=== PATIENT | female | born 1975 | race Caucasian/White ===

== ENCOUNTER 2016-08-17 22:41 | Emergency (ER) | payer OTHER ==
[~2016-08-17] VITALS: Ht 175.3 cm; Wt 83.9 kg
[~2016-08-17 22:41] MED LIST: FIBE1CHW PO; TRAM-10 PO
[2016-08-17 22:45] VITALS: TEMP 36.7; Ht 175.3 cm; Wt 83.9 kg
--- NOTE | 2016-08-17 22:57 | DIAGNOSTIC IMAGING REPORT ---
HEAD CT NONCONTRAST CT DOSE: 773.57 mGy.cm HISTORY: Mental status change severe LICONA TECHNIQUE: Multiaxial CT images of the head were performed without the use of intravenous contrast. Comparison: None. Findings: The paranasal sinuses and mastoid air cells are clear. The calvarium and skull base are intact. The ventricles and sulci are within normal limits. There is no mass, hematoma, midline shift, or acute infarct. Impression: No acute intracranial abnormality. Electronically signed by: Jose Juan Cheng M.D. 08/17/2016 10:56 PM Dictated Date/Time: 08/17/2016 10:55 PM
[2016-08-17] MEDS ORDERED: SUMATRIPTAN SUCCINATE 6 MG/0.5 ML VIAL SQ STA (23:09)
[2016-08-17] MEDS ORDERED: SUMA25TA12 PO ×2 (23:50→23:52)
[2016-08-17] MEDS ORDERED: SUMA50TA15 PO (23:54)
--- NOTE | 2016-08-17 23:59 | EMERGENCY ROOM VISIT NOTE ---
History First contact with patient: 22:43 Chief Complaint: HEADACHE Stated Complaint: MIGRAINE, NAUSEA, VOMITING History of Present Illness The patient is a 41 year old female who presents to the Emergency Room with complaints of sudden onset of headache today 1 hour just prior to arrival. Patient has a history of migraines and symptoms are somewhat worse. This is not her worst headache of her life but is quite severe for her. She is out of her Imitrex. Patient with some nausea, vomiting and photophobia. Patient denies numbness, tingling, weakness, dysarthria, fevers, cold symptoms, neck stiffness, loss of conscious, chest pain, dyspnea, abdominal pain or any other medical complaints. Normal imaging in the past of CT and MRI of the brain. She has a neurologist but cannot recall her name. Patient arrived via EMS and was given Zofran. Review of Systems See HPI for pertinent positives & negatives. A total of 10 systems reviewed and were otherwise negative. Past Medical/Surgical History Medical Problems: (1) Bilateral tubal ligation (2) section (3) Hernia, inguinal, unilateral Social History Smoking Status: Current Every Day Smoker Drug Use: none Marital Status: single Housing Status: lives with family Occupation Status: unemployed Current/Historical Medications Scheduled Sumatriptan Succinate (Imitrex), 1 TAB PO UD Allergies Coded Allergies: Penicillins (Verified Allergy, Mild, RASH TO AMOXICILLIN PER DR. CORREA, 08/17/16) Physical Exam Vital Signs Date Time Temp Pulse Resp B/P (MAP) Pulse Ox O2 Delivery O2 Flow Rate FiO2 08/17/16 22:45 36.7 90 22 116/76 100 Room Air Physical Exam VITALS: Vitals are noted on the nurse's note and reviewed by myself. Vital signs stable. GENERAL: Pleasant female who appears in pain, in no acute distress, nondiaphoretic, well-developed well-nourished. SKIN: The skin was without rashes, erythema, edema, or bruising. There is no tenting of the skin. Capillary reflex less than 2 seconds. HEAD: Normocephalic atraumatic. EARS: External auditory canals clear, tympanic membranes pearly greenberg without erythema or effusion bilaterally. EYES: Pupils equal round and reactive to light and accommodation. Conjunctivae without injection, sclerae without icterus. Extraocular movements intact. NOSE: Patent, turbinates without inflammation or discharge. No sinus tenderness. MOUTH: Mucous membranes moist. Pharynx without erythema or exudate. Uvula midline. Airway patent. Tongue does not deviate. NECK: Supple without nuchal rigidity. No lymphadenopathy. No thyromegaly. Cervical spine is nontender. No JVD. No meningeal signs HEART: Regular rate and rhythm without murmurs gallops or rubs. LUNGS: Clear to auscultation bilaterally without wheezes, rales or rhonchi. No dullness to percussion. No retractions or accessory muscle use. ABDOMEN: Positive bowel sounds x 4. Normal tympanic percussion. Soft, nontender, without masses or organomegaly. Damon sign negative. No guarding or rebound tenderness. MUSCULOSKELETAL: No muscle atrophy, erythema, or edema noted. NEURO: Patient was alert and oriented to person place and time. Normal sensation to light and sharp touch. No focal neurological deficits. Cranial nerves II-12 grossly intact. No prior drift. Cerebellar exam intact. Medical Decision & Procedures Medications Administered Medications (Trade) Dose Ordered Sig/Waqas Route Start Time Stop Time Status Last Admin Dose Admin Sumatriptan Succinate (Imitrex Sq Inj) 6 mg NOW STAT SQ 08/17/16 23:09 08/17/16 23:11 DC 08/17/16 23:27 6 MG ED Course Prior records/ancillary studies reviewed. Additional history obtained from family. Triage Nursing notes reviewed. The patient's history was concerning for headache. Differential diagnosis: Etiologies such as migraine headache, meningitis, sinusitis, CO exposure, ICH, SAH, infection, tumor, headache, sinus thrombosis, arterial dissection, as well as others were entertained. Physical examination findings: As above. Non-focal. ER treatment provided: Imitrex On reassessment the patient felt better. Diagnostics interpreted by me: Negative head CT per radiology This appears to be consistent with Migraine. Patient was neurovascularly and neurologically intact. She was well-appearing. No signs of meningitis. She had an unremarkable workup as above. She is advised follow-up with her neurologist in a few days or here in the ER sooner for severe headache, weakness , numbness, worsening signs or symptoms or as needed. By the evaluation outlined above emergent etiologies such as meningitis, sinusitis, CO exposure, ICH, SAH, infection, temporal arteritis, tumor, sinus thrombosis, arterial dissection, as well as others were deemed relatively unlikely. The pt informed about the findings as listed above. All questions were answered and pleased with the treatment. Return instructions were outlined and the patient was discharged in stable condition. Outpatient prescription management: imitrex Referral: The patient was referred back to their primary care physician/Neurology for follow-up in 2 to 3 days for a recheck of the current condition. case reviewed with my Attending. Medical Decision As above I attest that I have personally reviewed the patient's medications. Impression Primary Impression: Migraine Departure Information Prescriptions Sumatriptan Succinate (IMITREX) 50 Mg Tab 1 TAB PO UD, #20 TAB 1 Refill Prov: Michelle Esposito .PRIYA 08/17/16 Referrals Glen Oconnor M.D. (PCP) Patient Instructions My [facility] Problem Qualifiers Primary Impression: Migraine Migraine type: without aura Status migrainosus presence: without status migrainosus Intractability: not intractable Qualified Codes: G43.009 - Migraine without aura, not intractable, without status migrainosus
[2016-08-18 00:03] VITALS: BP 110/72; PULSE 82; O2SAT 98
== END 2016-08-18 00:04 | disposition home or self-care (01) ==
LOC: EDBD 22:41 → C.EDB 22:43
DX: G43.009 Migraine without aura, not intractable, without status migrainosus (principal); F17.200 Nicotine dependence, unspecified, uncomplicated

== ENCOUNTER 2021-10-16 22:47 | Inpatient (IN) ==
[2021-10-16] MEDS ORDERED: TRANEXAMIC ACID / 0.7% NACL 1,000 MG/100 ML BAG IV STA (22:57)
--- NOTE | 2021-10-16 23:18 | Emergency Department Note ---
History of Present Illness General Chief complaint: Wound Time Seen by Provider: 10/16/21 22:50 History of Present Illness Maximum Pain Intensity: [age]-year-old female presents emergency department via EMS with a bleeding fungating breast cancer mass of the left breast. Patient reportedly has a history of breast cancer and brain cancer reportedly was just recently at [facility]. She was to follow-up with a local breast surgeon. She called EMS this evening as the left breast area started to bleed without any trauma. Patient denies being on any blood thinners. EMS states that they noticed bruising at the area of the mass and bulky dressed and wrapped the patient's chest wall. There are no other complaints from the patient at this time Home Medications Medication Instructions Recorded Confirmed Type acetaminophen 500 mg tablet 1,000 mg PO Q6H PRN Pain 10/17/21 10/17/21 History (Tylenol Extra Strength) famotidine 20 mg tablet 20 mg PO BID PRN Acid Reflux 10/17/21 10/17/21 History levetiracetam 1,000 mg tablet 1,000 mg PO BID 10/17/21 10/17/21 History Allergies Allergy/AdvReac Type Severity Reaction Status Date / Time Penicillins Allergy Mild RASH TO Verified 10/17/21 01:[address] CORREA Past Med/Surg History Medical History Breast cancer Surgical History History of bilateral tubal ligation (09/29/12) Previous section (09/29/12) Social History Smoking Status: Former smoker Tobacco Type: Cigarettes Preferred Language: Yi Feels Safe at Home: Yes Immunizations: Medical history is brain cancer, breast cancer Review of Systems A total of 10 systems reviewed and were otherwise negative Constitutional: no fever Respiratory: no cough Cardiovascular: no chest pain Gastrointestinal: no abdominal pain Integumentary: + lesions, + bleeding lesions, + breast pain, + breast skin changes and + breast swelling Physical Exam Vital Signs Vital Signs - 24 hr 10/16/21 23:00 10/16/21 23:50 10/16/21 23:30 Temperature 36.9 C Temperature Source Oral Pulse Rate 97 H 93 H Pulse Rate from SpO2 Sensor 93 H Pulse Rhythm Regular Pulse Strength Normal Respiratory Rate 20 19 Respiratory Effort / Characteristics Non-Labored Spontaneous Respiratory Depth Normal Respiratory Pattern Regular Blood Pressure 124/78 118/81 Blood Pressure Mean 93 93 Blood Pressure Position Lying Pulse Oximetry 98 100 99 Oxygen Delivery Method Room Air Room Air Sepsis Recent Fever Within 48 Hours No Sepsis New/Unexplained Change in Mental Status No Sepsis Action Taken by Nursing No Action Required 10/17/21 00:00 10/17/21 00:30 Temperature Temperature Source Pulse Rate 93 H 80 Pulse Rate from SpO2 Sensor Pulse Rhythm Pulse Strength Respiratory Rate 18 21 Respiratory Effort / Characteristics Respiratory Depth Respiratory Pattern Blood Pressure 129/84 109/77 Blood Pressure Mean 99 87 Blood Pressure Position Pulse Oximetry 97 96 Oxygen Delivery Method Sepsis Recent Fever Within 48 Hours Sepsis New/Unexplained Change in Mental Status Sepsis Action Taken by Nursing VITAL SIGNS - Vital signs and nursing notes were reviewed. GENERAL - in no acute distress. Communicates well with provider and answers questions appropriately. SKIN - Without rashes. HEAD - NC/AT. EYES - PERRL with EOMI bilaterally. Sclera anicteric. Palpebral conjunctiva pink and moist with no injection noted. EARS - No deformities of external structures noted on gross examination bilaterally. NOSE - Midline and without cyanosis. No epistaxis or purulent drainage noted. Septum midline without deviation or septal hematoma noted. MOUTH/OROPHARYNX - Without perioral cyanosis. NECK - Neck with FROM. Supple to palpation. LUNGS - Chest wall symmetric without accessory muscle use, intercostals retractions, or central cyanosis. Normal vesicular breath sounds CTA B/L. No wheezes, rales, or rhonchi appreciated. CARDIAC - RRR with S1/S2. No murmur, rubs, or gallops appreciated. Chest: There is a large fungating violaceous left breast mass that has raw oozing bleeding tissue present ABDOMEN - Abdominal contour soft without pulsations or visible masses. BS normoactive all four quadrants. No tenderness, palpable masses, hepatosplenomegaly, or ascites noted. EXTREMITIES - No clubbing or peripheral cyanosis. No pretibial edema present. . +5/5 strength noted in UE/LE bilaterally. NEUROLOGIC - Cranial nerves II through XII grossly intact. PSYCH - A&Ox3 and cooperates fully with examiner. Pt is very pleasant and inte racts well with examiner. Course Reevaluation(s) Reevaluation #1: Patient was given IV TXA, patient had a bulky dressing placed and bandage to the left breast. Patient was started on empiric IV antibiotics. The case was discussed with the surgical team, the case was discussed with [facility] for admission at 1:04 AM Time: 01:04 Administered Medications Tranexamic Acid (Tranexamic Acid / 0.7% Nacl) 1,000 mg in 100 mls @ 600 mls/hr IV NOW STA Stop: 10/16/21 23:06 Last Infusion: 10/16/21 23:54 Dose: 0 mls/hr Documented By: Admin: 10/16/21 23:28 Dose: 600 mls/hr Documented By: HARSHA Meropenem 500 mg/ Syringe 10 mls @ 2 mls/min IV NOW STA; Protocol Stop: 10/17/21 01:24 Last Admin: 10/17/21 01:38 Dose: 2 mls/min Documented By: HARSHA Medical Decision Making Medical Records Attestation: I reviewed the patient's medical records. Home Medications Current Medication List: was personally reviewed by me Laboratory Data Attestation: I reviewed the patient's lab results. Result diagrams: 10/16/21 23:30 10/16/21 23:30 Lab Results 10/16/21 10/16/21 10/16/21 Range/Units 23:30 23:30 23:30 WBC 26.32 H (4.8-10.8) K/ul RBC 2.67 L (3.93-5.22) M/uL Hgb 8.6 L (12.0-16.0) g/dl Hct 27.7 L (34.1-44.9) % MCV 103.7 H (80.0-100.0) fL MCH 32.2 (25.0-34.0) pg MCHC 31.0 L (32.0-36.0) g/dL RDW Std Deviation 59.3 H (36.4-46.3) fL RDW Coeff of Elvie 15.9 H (11.5-14.5) % Plt Count 237 (130-400) K/uL MPV 9.1 L (9.4-12.3) fL Immature Gran % (Auto) 0.8 % Neut % (Auto) 90.4 % Lymph % (Auto) 2.9 % [place] % (Auto) 5.4 % Eos % (Auto) 0.3 % Baso % (Auto) 0.2 % Neut # (Auto) 23.80 H (1.4-6.5) K/uL Lymph # (Auto) 0.76 L (1.2-3.4) K/uL [place] # (Auto) 1.43 H (0.24-0.82) K/uL Eos # (Auto) 0.07 (0-0.50) K/uL Baso # (Auto) 0.04 (0-0.2) K/uL Immature Gran # (Auto) 0.22 H (0.00-0.02) K/uL Tear Drop Cells 1+ PT 11.6 (9.0-12.0) Seconds INR 1.1 (0.9-1.1) APTT 21.6 (21.0-31.0) Seconds PTT Ratio 0.8 Sodium 140 (136-145) mmol/L Potassium 4.1 (3.5-5.1) mmol/L Chloride 106 (98-107) mmol/L Carbon Dioxide 27 (21-32) mmol/L Anion Gap 7 (3-11) BUN 21 (6-23) mg/dl Creatinine 0.89 (0.6-1.2) mg/dl Est Cr Clr Drug Dosing 80.8 ml/min Est GFR ( Amer) 88.8 ml/min Est GFR (Non-Af Amer) 76.6 ml/min BUN/Creatinine Ratio 23.6 H (10-20) Glucose 104 H (70-99(Fasting)) mg/dl Calcium 8.1 L (8.5-10.1) mg/dl Total Bilirubin 0.3 (0.2-1.0) mg/dl AST 12 L (13-39) U/L ALT 14 (7-52) U/L Alkaline Phosphatase 114 H (34-104) U/L Total Creatine Kinase 17 L (26-192) U/L Total Protein 5.3 L (6.0-8.3) gm/dl Albumin 3.1 L (3.4-5.0) gm/dl Globulin 2.2 L (2.5-4.0) gm/dl Albumin/Globulin Ratio 1.4 (0.9-2) MDM Narrative Medical decision making differential diagnosis is bleeding breast mass, coagulopathy, anemia, abscess Impression & Plan Large mass of breast, Abscess Discharge Plan Visit Data Chief Complaint: Wound ED Provider: Temo Beasley Discharge Problem: Large mass of breast, Abscess Patient Disposition: Being Evaluated by Hospitalist Forms Stand Alone Forms: [facility] Prescriptions Prescriptions: No Action acetaminophen [Tylenol Extra Strength] 500 mg Tablet 1,000 mg PO Q6H PRN (Reason: Pain) famotidine 20 mg tablet 20 mg PO BID PRN (Reason: Acid Reflux) levetiracetam 1,000 mg tablet 1,000 mg PO BID Referrals Referrals: Glen Oconnor MD [Primary Care Provider] -
[2021-10-16 23:57] LABS: Hematocrit (blood only) 27.7 % (34.1-44.9); Hemoglobin 8.6 g/dl (12.0-16.0); Mean Corpuscular Hemoglobin 32.2 pg (25.0-34.0); Mean Corpuscular Volume 103.7 fL (80.0-100.0); Mean Platelet Volume 9.1 fL (9.4-12.3); Platelet Count 237 K/uL (130-400); RDW Coefficient of Variation 15.9 % (11.5-14.5); RDW Standard Deviation 59.3 fL (36.4-46.3); Red Blood Count 2.67 M/uL (3.93-5.22); White Blood Count 26.32 K/ul (4.8-10.8)
[2021-10-17 00:10] LABS: INR 1.1 (0.9-1.1); Partial Thromboplastin Ratio 0.8; Partial Thromboplastin Time 21.6 Seconds (21.0-31.0); Prothrombin Time 11.6 Seconds (9.0-12.0)
[2021-10-17 00:21] LABS: Basophils # (auto) 0.04 K/uL (0-0.2); Basophils % (auto) 0.2 %; Eosinophils # (auto) 0.07 K/uL (0-0.50); Eosinophils % (auto) 0.3 %; Immature Granulocytes # (auto) 0.22 K/uL (0.00-0.02); Immature Granulocytes % (auto) 0.8 %; Lymphocytes # (auto) 0.76 K/uL (1.2-3.4); Lymphocytes % (auto) 2.9 %; Monocytes # (auto) 1.43 K/uL (0.24-0.82); Monocytes % (auto) 5.4 %; Neutrophils % (auto) 90.4 %; Tear Drop Cells 1+
[2021-10-17 00:28] LABS: Albumin Globulin Ratio 1.4 (0.9-2); Albumin Level 3.1 gm/dl (3.4-5.0); BUN Creatinine Ratio 23.6 (10-20); Bilirubin,Total 0.3 mg/dl (0.2-1.0); Calcium 8.1 mg/dl (8.5-10.1); Creatinine Clr Calc Pharmacy 80.8 ml/min; Est GFR (African American) 88.8 ml/min; Est GFR (Non-African American) 76.6 ml/min; Globulin 2.2 gm/dl (2.5-4.0); Potassium 4.1 mmol/L (3.5-5.1); Total Protein 5.3 gm/dl (6.0-8.3)
[2021-10-17] MEDS ORDERED: VANCOMYCIN HCL 1,500 MG in SODIUM CHLORIDE 0.9% 500 ML IV ONE (00:55)
[2021-10-17] MEDS ORDERED: VANCOMYCIN CONSULT ACTIVE PRN (00:55)
[2021-10-17] MEDS ORDERED: MEROPENEM 500 MG in SYRINGE 0 ML IV STA (01:20)
--- NOTE | 2021-10-17 01:25 | Surgery Consultation ---
Date of Consultation October 17, 2021 Assessment & Plan (1) Large mass of breast: Patient is being admitted on the hospitalist service. Recommend proceeding as follows: Recommend consultation with wound care nurse For the present time recommend continuing local wound care with wet-to-dry dressings daily Oncologic care as directed by the primary service Recommend following serial labs and providing a blood transfusion if needed due to worsening anemia Patient's wound will be examined by Dr. Garcia this weekend will determine if any surgical intervention will be required during this admission Would recommend using only SCDs for DVT prevention, avoiding chemical means due to concern for bleeding from patient's left fungating breast mass Supervising Physician Co-Signing Physician Notes I personally saw and evaluated the patient with Caleb Powers PA-C and agree with the assessment and plan. 46-year-old female with metastatic breast cancer and left breast fungating mass No plans for any surgical intervention Would consult wound care and start Aquacel AG to the wound base daily and as needed for drainage Agree with IV antibiotics, however she does not appear to be septic from this wound other than elevated white blood cell count which she has had now for over 1 month Surgery would only be entertained if she began to have signs of sepsis due to her wound I think the likelihood of this is low due to the chronic nature of this History of Present Illness Reason for Consultation: Fungating left breast mass History of Present Illness This is a 46-year-old female who presented to [facility] emergency department with her daughter secondary to a bleeding left breast mass. The patient's records were reviewed and the case was discussed with the patient and her daughter. The patient does have a history of remote right breast cancer for which she underwent a right mastectomy. The patient has since developed a left-sided breast cancer. The patient says that she was previously living outside of [place] and she was receiving chemotherapy as well as immuno therapy which concluded in June 2021. She specifically notes that she has not received any radiation to this area. She has since relocated to the [facility]. She was seen in the emergency department in August due to concerns for a wound on her left breast and she was administered Keflex and Bactrim. Patient was advised to follow-up with her outpatient physicians. She notes that the wound on her left breast has gotten worse. The wound is cared for at home by herself and her daughter with dressing changes. The patient again presented to [facility] emergency department on October 02 of this year secondary to a seizure that was noted while she was at home. Upon presentation to the emergency department the patient was unresponsive with agonal respirations and was immediately intubated. She had a CT scan of the head at that time that showed concern for a left parietal/occipital mass and she was transferred to [facility]. The patient and her daughter unclear of all the exact details but the patient did undergo craniotomy with removal of this mass. They are unsure of the exact pathology. They presented to the [facility] emergency department today as during her dressing change today her daughter noted more venous oozing from the left breast which she was unable to control in the usual fashion. Patient does note the area is somewhat painful to palpation and touch but is not much worse than usual. She denies any fevers, shakes, or chills. She denies any nausea or vomiting. There have been no recurrent witnessed seizures. Today in the emergency department patient had labs which showed a white blood cell count of 26.3. The hemoglobin and hematocrit were 8.6 and 27.7 and the platelet count was 237,000. Coagulation studies were noted to be normal. Chemistry profile showed sodium, potassium, BUN, and creatinine were all normal. At the time of my interview the patient is resting comfortably in bed and she was in no distress. Allergies Allergy/AdvReac Type Severity Reaction Status Date / Time Penicillins Allergy Mild RASH TO Verified 10/17/21 01:[address] CORREA Home Medications Medication Instructions Recorded Confirmed Type acetaminophen 500 mg tablet 1,000 mg PO Q6H PRN Pain 10/17/21 10/17/21 History (Tylenol Extra Strength) famotidine 20 mg tablet 20 mg PO BID PRN Acid Reflux 10/17/21 10/17/21 History levetiracetam 1,000 mg tablet 1,000 mg PO BID 10/17/21 10/17/21 History Patient History Medical History Breast cancer Surgical History History of bilateral tubal ligation (09/29/12) Previous section (09/29/12) Social History Smoking Status: Former smoker Tobacco Type: Cigarettes Do You Dip or Chew Tobacco: No; Hx Alcohol Use: No Hx Substance Use: No Preferred Language: Occitan Communication Ability: Effective Machine Fur Cleaner Required: No Beliefs That Will Affect Care: None Current Living Situation: Family Current Living Situation Comment: Lives with Mariya smith Other Information That Helps Us Care for You: No Feels Safe at Home: Yes Safety Concerns: Feels Safe At This Time Assistive Devices: Wheelchair Review of Systems Constitutional: no fever and no chills Eyes: no eye pain Ear, Nose, Mouth, Throat: no ear pain Respiratory: no cough and no dyspnea Cardiovascular: + chest pain (Chest wall pain) Gastrointestinal: no nausea and no vomiting Genitourinary: no dysuria Musculoskeletal: no back pain Integumentary: no rash Neurologic: no localized weakness Physical Exam Constitutional: no acute distress Eyes: no conjunctival abnormality ENMT: Ears: no hearing impairment Mouth: no oropharynx abnormality Neck: trachea midline Respiratory: normal respiratory effort; no respiratory distress and no labored breathing Cardiovascular: Rate/Rhythm: regular rate and regular rhythm Chest (Breasts): Additional Comments: With a nurse 3rd pressman present the patient's chest wall was examined. The patient was noted to have a large fungating mass of the left breast encompassing nearly the entire breast tissue. There is a small amount of what appeared to be necrotic tissue surrounding the areola. There was some dark venous oozing blood in the periphery of the wound. There is no purulent drainage at the time of my exam. Gastrointestinal (Abdomen): Soft, nontender. Musculoskeletal: No calf tenderness Neurologic: moves all extremities Psychiatric: A+Ox3, euthymic affect Results & Data ([facility]) Vital Signs (Past 12 Hours) Vital Signs Temp Pulse Resp BP Pulse Ox O2 Del Method 10/17/21 00:30 80 21 109/77 96 10/17/21 00:00 93 H 18 129/84 97 10/16/21 23:30 93 H 19 118/81 99 10/16/21 23:50 100 Room Air 10/16/21 23:00 36.9 C 97 H 20 124/78 98 Room Air PG Care Time/CCT Total # of Minutes Spent Total Time Spent with Patient: Total time spent is greater than 50% in coordination of care (as documented) at patient's floor/unit and/or counseling patient: Coding Level of Care Code 75403 Inpt Consult Level 5 Diagnoses Large mass of breast N63.0
[2021-10-17] MEDS ORDERED: MELATONIN 3 MG TAB PO PRN (01:53)
--- NOTE | 2021-10-17 01:53 | History & Physical Report ---
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 Follow H&H, transfuse PRBC if hemoglobin less than 7 and or for symptomatic anemia. DVT prophylaxis. SCDs Re: Bleeding breast mass Full code Text document was generated using Next audience voice recognition software. It may contain grammatical or spelling errors. Kindly contact undersigned for clarification of any documentation item in question. History of Present Illness Chief Complaint: Bleeding left breast mass Primary Care Provider: Glen Oconnor MD History obtained from patient and records. Medical history significant for recurrent left breast cancer status post chemotherapy with brain mets status post craniotomy and radiation, history right breast cancer with lung mets status post surgery (2007), chemotherapy, tamoxifen Rx, History of BRCA gene mutation, seizure disorder on Keppra, chronic anemia (baseline hemoglobin of 8), anxiety/mood disorder, past tobacco abuse. Patient was residing in [place] last year when she was found to have left breast cancer status post chemotherapy/immunotherapy under the care of [facility] specialist. Patient moved back to [place] 3 months ago to be with her family. 2 months ago patient noted a blister on her left breast which later developed into a fungating left breast mass wound with purulent drainage. Patient brought by daughter to [facility] ER 6 weeks ago. Wound CS grew Bacteroides and Finegoldia. Bactrim and Keflex prescribed by provider which improved infection as per patient. She was waiting for [facility] records to be sent to her local family doctor/oncol ogist. Two weeks ago patient noted to be confused at home by family. EMS called to patient's home. Seizures noted at patient's home. Patient intubated upon arrival at [facility] ER for airway protection/respiratory failure. CT head showed left parieto-occipital hypodensity representing vasogenic edema, possible brain metastasis. Patient transferred to [facility] for neurosurgical services. Subsequently admitted from October [address] chest, abdomen, and pelvis showed 1. 10 cm heterogenous mass in the left breast concerning for malignancy with lymph node metastasis to the left axilla and right hilum. 2. Diffuse lung nodules and multiple hypodense lesions throughout the liver concerning for additional sites of metastasis. 3. Small bilateral pleural effusions, anasarca, and free fluid in the abdomen and pelvis. Brain MRI showed Solitary intracranial metastases within the left parietal lobe with corresponding increased relative cerebral blood volume and surrounding edema. Patient underwent stereotactic radiation surgery followed by craniectomy with mass resection. Postop brain MRI showed acute postsurgical changes status post resection of previously seen left parietal intraparenchymal mass. No evidence of residual tumor within the surgical resection cavity. 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 Patient discharged on Decadron taper and Keppra Rx. Outpatient follow-up with local oncologist scheduled for next week. Patient noted increase in foul-smelling drainage from left breast mass the last few days. No fever, no chills, no chest pain, no SOB. Last night, patient noted uncontrolled bleeding from left breast mass. No recollection of trauma. EMS called to patient's home. Patient noted to be tachycardic. Patient brought to the ER for evaluation. Tranexamic acid administered at the ER. Medical History as above Surgical History : Right mastectomy, breast reconstruction, ESWL, section, vascular device placement, appendectomy, cholecystectomy, craniotomy with supratentorial brain tumor removal Family History : Heart disease, breast cancer Personal/Social history : Past tobacco abuse, occasional EtOH intake, prior employment at a [employer] Allergies Allergy/AdvReac Type Severity Reaction Status Date / Time Penicillins Allergy Mild RASH TO Verified 10/17/21 01:[address] CORREA Home Medications Medication Instructions Recorded Confirmed Type acetaminophen 500 mg tablet 1,000 mg PO Q6H PRN Pain 10/17/21 10/17/21 History (Tylenol Extra Strength) famotidine 20 mg tablet 20 mg PO BID PRN Acid Reflux 10/17/21 10/17/21 History levetiracetam 1,000 mg tablet 1,000 mg PO BID 10/17/21 10/17/21 History Past Med/Surg History Medical History Breast cancer Surgical History History of bilateral tubal ligation (09/29/12) Previous section (09/29/12) Social History Smoking Status: Former smoker Tobacco Type: Cigarettes Do You Dip or Chew Tobacco: No; Hx Alcohol Use: No Hx Substance Use: No Preferred Language: Eritrean Communication Ability: Effective Waterway Traffic Checker Required: No Beliefs That Will Affect Care: None Current Living Situation: Family Current Living Situation Comment: Lives with Mariya smith Other Information That Helps Us Care for You: No Feels Safe at Home: Yes Safety Concerns: Feels Safe At This Time Assistive Devices: Wheelchair Review of Systems Review of Systems: As per HPI, all other systems reviewed and negative Physical Exam Physical Exam: GENERAL: Comfortable, pleasant, looks older than stated age, no respiratory distress SKIN: Pallor, warm HEENT: Bespectacled, pale palpebral conjunctivae, no ptosis, dry buccal mucosa NECK : Supple, no tenderness CHEST : CTA, fungating left breast mass with foul-smelling drainage, no chest wall tenderness HEART : RRR, no obvious murmurs ABDOMEN: Some distention, nontender EXTREMITIES : No LE swelling/tenderness, no other conspicuous deformities noted NEUROLOGIC : Coherent, no facial asymmetry, no other gross focality Results & Data Results & Data ([facility]) Vital Signs (Past 12 Hours) Vital Signs Temp Pulse Resp BP Pulse Ox O2 Del Method 10/17/21 00:30 80 21 109/77 96 10/17/21 00:00 93 H 18 129/84 97 10/16/21 23:30 93 H 19 118/81 99 10/16/21 23:50 100 Room Air 10/16/21 23:00 36.9 C 97 H 20 124/78 98 Room Air Laboratory Results Laboratory Results WBC 26.32 K/ul (4.8-10.8) H 10/16/21 23:30 RBC 2.67 M/uL (3.93-5.22) L 10/16/21 23:30 Hgb 8.6 g/dl (12.0-16.0) L 10/16/21 23: Hct 27.7 % (34.1-44.9) L 10/16/21 23: MCV 103.7 fL (80.0-100.0) H 10/16/21 23:30 MCH 32.2 pg (25.0-34.0) 10/16/21 23: MCHC 31.0 g/dL (32.0-36.0) L 10/16/21 23: RDW Std Deviation 59.3 fL (36.4-46.3) H 10/16/21 23: RDW Coeff of Elvie 15.9 % (11.5-14.5) H 10/16/21: Plt Count 237 K/uL (130-400) 10/16/21 23: MPV 9.1 fL (9.4-12.3) L 10/16/21 23: Immature Gran % (Auto) 0.8 % 10/16/21 23: Neut % (Auto) 90.4 % 10/16/21 23:30 Lymph % (Auto) 2.9 % 10/16/21 23:30 Walsh % (Auto) 5.4 % 10/16/21 23:30 Eos % (Auto) 0.3 % 10/16/21 23: Baso % (Auto) 0.2 % 10/16/21 23:30 Neut # (Auto) 23.80 K/uL (1.4-6.5) H 10/16/21 23:30 Lymph # (Auto) 0.76 K/uL (1.2-3.4) L 10/16/21 23:30 Walsh # (Auto) 1.43 K/uL (0.24-0.82) H 10/16/21 23:30 Eos # (Auto) 0.07 K/uL (0-0.50) 10/16/21 23: Baso # (Auto) 0.04 K/uL (0-0.2) 10/16/21 23: Immature Gran # (Auto) 0.22 K/uL (0.00-0.02) H 10/16/21 23: Tear Drop Cells 1+ 10/16/21 23:30 PT 11.6 Seconds (9.0-12.0) 10/16/21 23:30 INR 1.1 (0.9-1.1) 10/16/21 23:30 APTT 21.6 Seconds (21.0-31.0) 10/16/21 23:30 PTT Ratio 0.8 10/16/21 23:30 Sodium 140 mmol/L (136-145) 10/16/21 23:30 Potassium 4.1 mmol/L (3.5-5.1) 10/16/21 23:30 Chloride 106 mmol/L (98-107) 10/16/21 23:30 Carbon Dioxide 27 mmol/L (21-32) 10/16/21:30 Anion Gap 7 (3-11) 10/16/21 23:30 BUN 21 mg/dl (6-23) 10/16/21:30 Creatinine 0.89 mg/dl (0.6-1.2) 10/16/21 23:30 Est Cr Clr Drug Dosing 80.8 ml/min 10/16/21 23:30 Est GFR ( Amer) 88.8 ml/min 10/16/21 23:30 Est GFR (Non-Af Amer) 76.6 ml/min 10/16/21 23:30 BUN/Creatinine Ratio 23.6 (10-20) H 10/16/21 23:30 Glucose 104 mg/dl (70-99(Fasting)) H 10/16/21 23:30 Calcium 8.1 mg/dl (8.5-10.1) L 10/16/21 23:30 Total Bilirubin 0.3 mg/dl (0.2-1.0) 10/16/21 23:30 AST 12 U/L (13-39) L 10/16/21 23:30 ALT 14 U/L (7-52) 10/16/21 23:30 Alkaline Phosphatase 114 U/L (34-104) H 10/16/21 23:30 Total Creatine Kinase 17 U/L (26-192) L 10/16/21 23:30 Total Protein 5.3 gm/dl (6.0-8.3) L 10/16/21 23:30 Albumin 3.1 gm/dl (3.4-5.0) L 10/16/21 23:30 Globulin 2.2 gm/dl (2.5-4.0) L 10/16/21 23:30 Albumin/Globulin Ratio 1.4 (0.9-2) 10/16/21 23:30
[2021-10-17] MEDS ORDERED: DOXYCYCLINE HYCLATE 100 MG in DEXTROSE 5% 100 ML IV STA (01:54)
[2021-10-17] MEDS ORDERED: PROMETHAZINE HCL 12.5 MG in SODIUM CHLORIDE 0.9% 50 ML IV PRN (02:05)
[2021-10-17] MEDS ORDERED: LACTATED RINGER'S 1,000 ML IV ONE (02:05)
[2021-10-17] MEDS ORDERED: IBUPROFEN 200 MG TAB PO PRN (02:05)
[2021-10-17 02:20] LABS: Hematocrit (blood only) 29.6 % (34.1-44.9); Hemoglobin 9.4 g/dl (12.0-16.0)
[2021-10-17] MEDS: KETOROLAC TROMETHAMINE 15 MG/ML VIAL IV PRN (02:34)
[2021-10-17 03:03] LABS: Thyroid Stimulating Hormone 4.94 uIu/ml (0.300-4.500)
[2021-10-17] MEDS ORDERED: ACETAMINOPHEN 325 MG TAB PO PRN (03:09)
[2021-10-17] MEDS ORDERED: FAMOTIDINE 20 MG TAB PO PRN (03:09)
[2021-10-17 03:35] LABS: T4 Free Thyroxine 1.19 ng/dl (0.61-1.60)
[2021-10-17 05:08] LABS: Hematocrit (blood only) 26.2 % (34.1-44.9); Hemoglobin 8.3 g/dl (12.0-16.0); Mean Corpuscular Hemoglobin 32.5 pg (25.0-34.0); Mean Corpuscular Hgb Conc 31.7 g/dL (32.0-36.0); Mean Corpuscular Volume 102.7 fL (80.0-100.0); Mean Platelet Volume 8.6 fL (9.4-12.3); Platelet Count 207 K/uL (130-400); RDW Coefficient of Variation 15.8 % (11.5-14.5); RDW Standard Deviation 58.9 fL (36.4-46.3); Red Blood Count 2.55 M/uL (3.93-5.22); White Blood Count 25.31 K/ul (4.8-10.8)
[2021-10-17 05:33] LABS: Basophils # (auto) 0.03 K/uL (0-0.2); Basophils % (auto) 0.1 %; Eosinophils % (auto) 0.4 %; Immature Granulocytes % (auto) 0.8 %; Lymphocytes # (auto) 0.58 K/uL (1.2-3.4); Lymphocytes % (auto) 2.3 %; Monocytes % (auto) 5.1 %; Neutrophils % (auto) 91.3 %; Tear Drop Cells 1+
[2021-10-17 05:36] LABS: BUN Creatinine Ratio 23.3 (10-20); Creatinine Clr Calc Pharmacy 83.6 ml/min; Est GFR (African American) 92.6 ml/min; Est GFR (Non-African American) 79.9 ml/min; Potassium 4.3 mmol/L (3.5-5.1)
[2021-10-17] MEDS: MEROPENEM 500 MG in SYRINGE 0 ML IV SCH ×3 (08:37→19:42)
[2021-10-17] MEDS: levETIRAcetam 500 MG TAB PO SCH ×2 (09:16→19:39)
[2021-10-17] MEDS ORDERED: oxyCODONE HCL IR 5 MG TAB (IMMEDIATE RELEASE) ONE (12:43)
--- NOTE | 2021-10-17 18:49 | Communication Note ---
Date of Service: October 17, 2021 Follow-up for sepsis, left breast fungating mass, etc. Seen resting in bed, comfortable, not in distress Reports pain over the left breast mass. Shortness of breath, palpitations, dizziness, nausea vomiting, fevers or chills No recurrence of bleeding over the mass today Vitals as noted reviewed Clear presents bilaterally Positive large left breast mass, with surrounding erythema and tenderness No active bleeding noted All labs noted and reviewed Sepsis, secondary to infected left breast mass -Follow-up cultures -Continue meropenem plus doxycycline -General surgery consulted, no recommendation for surgical intervention at this time Hemoglobin stable around 8 Will follow closely As needed oxycodone added for severe pain Eddie Hutchins MD
[2021-10-17] MEDS: oxyCODONE HCL IR 5 MG TAB (IMMEDIATE RELEASE) PO PRN (19:38)
[2021-10-17] MEDS: DOXYCYCLINE HYCLATE 100 MG CAP PO SCH (19:40)
[2021-10-17] MEDS: ACETAMINOPHEN 500 MG TAB PO SCH (19:42)
[2021-10-18] MEDS: ACETAMINOPHEN 500 MG TAB PO SCH ×3 (02:29→21:00)
[2021-10-18] MEDS: MEROPENEM 500 MG in SYRINGE 0 ML IV SCH ×4 (02:29→21:03)
[2021-10-18] MEDS: oxyCODONE HCL IR 5 MG TAB (IMMEDIATE RELEASE) PO PRN ×3 (02:29→16:48)
--- NOTE | 2021-10-18 05:50 | Surgery Progress Note ---
Date of Service October 18, 2021 Assessment & Plan (1) Large mass of breast: Plan: Patient is being admitted on the hospitalist service. Recommend proceeding as follows: At the present time we will continue local wound care with dressingsorders placed yesterday to place Aquacel Ag on wound Continue antibiotics as directed by primary servicecurrently she is receiving meropenem and oral doxycycline Plan on examining wound with attending physician on a.m. rounds Admission and Anticipated Discharge Date Admission Date: October 17, 2021 Supervising Physician Co-Signing Physician Notes I personally saw and evaluated the patient with Caleb Powers PA-C and agree with the assessment and plan. 46-year-old female with metastatic breast cancer and left breast fungating mass No plans for any surgical intervention Patient states she is feeling better and the Aquacel dressings are helping Surgery would only be entertained if she began to have signs of sepsis due to her wound as she just had intracranial surgery 2 weeks ago at [facility] and would be high risk for perioperative complications We will continue to follow Subjective Patient is resting comfortably in bed. Significant pain is not reported. No fevers. Physical Exam Physical Exam: Will examine breast/wound with attending physician on a.m. rounds Chest (Breasts): Additional Comments: Fungating breast wound with purulent drainage Results & Data ([facility]) Vital Signs (Past 12 Hours) Vital Signs Temp Pulse Pulse Resp BP Pulse Ox O2 Del Method 10/18/21 03:04 36.7 C 74 18 101/63 100 Room Air 10/18/21 03:53 104 H 10/17/21 23:00 37.3 C 90 18 112/71 98 Room Air 10/17/21 20:15 37.1 C 103 H 18 119/76 98 Room Air 10/17/21 19:30 37.5 C 99 H 22 109/71 98 Room Air PG Care Time/CCT Total # of Minutes Spent Total Time Spent with Patient: Total time spent is greater than 50% in coordination of care (as documented) at patient's floor/unit and/or counseling patient: Coding Level of Care Code 42515 Subseq Hosp Care Lvl 1 Diagnoses Large mass of breast N63.0
[2021-10-18] MEDS: levETIRAcetam 500 MG TAB PO SCH ×2 (07:35→21:00)
[2021-10-18] MEDS: DOXYCYCLINE HYCLATE 100 MG CAP PO SCH ×2 (07:38→21:00)
--- NOTE | 2021-10-18 16:21 | Hospitalist Progress Note ---
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 SCDs Re: Bleeding breast mass Full code Disposition wound cultures pending anticipate d/c home when medically stable Admission and Anticipated Discharge Date Admission Date: October 17, 2021 Subjective ff up for infected L breast mass, etc seen sitting up in bed, comfortable states she feels better today pain well controlled no fever/chills no chest pain, dyspnea, palpitations, dizziness no other symptoms Review of Systems Review of Systems: all noted and negative except for above Physical Exam Physical Exam: General- oriented x 3, not in distress, speaks in sentences with no effort or accessory muscle use Eyes- anicteric Neck- no JVD Lungs- clear breath sounds bilaterally, no rales/wheezes Heart- normal rate, regular rhythm; no murmurs Left breast mass- less erythema, edema surrounding the mass (+) 5-6 areas with minimal oozing of blood when dressing was removed no active draining abscess noted Abdomen- normal bowel sounds, nondistended, soft, nontender Extremities- no pretibial edema, no calf tenderness Neuro- alert, oriented x 3; no gross focal neurologic deficits Skin- warm & dry Results & Data Results & Data ([facility]) Vital Signs (Past 12 Hours) Vital Signs Temp Pulse Pulse Resp BP Pulse Ox O2 Del Method 10/18/21 15:17 91 H 10/18/21 11:54 37.0 C 90 16 115/76 99 Room Air 10/18/21 07:59 36.7 C 79 16 101/68 99 Room Air 10/18/21 07:04 74 all noted and reviewed including below
[2021-10-19] MEDS: oxyCODONE HCL IR 5 MG TAB (IMMEDIATE RELEASE) PO PRN ×3 (00:13→17:14)
[2021-10-19] MEDS: LORazepam 0.5 MG TAB PO PRN ×2 (00:13→13:34)
[2021-10-19] MEDS: ACETAMINOPHEN 500 MG TAB PO SCH ×3 (02:06→20:04)
[2021-10-19] MEDS: MEROPENEM 500 MG in SYRINGE 0 ML IV SCH ×2 (02:06→07:31)
[2021-10-19] MEDS: levETIRAcetam 500 MG TAB PO SCH ×2 (07:30→20:06)
[2021-10-19] MEDS: DOXYCYCLINE HYCLATE 100 MG CAP PO SCH ×2 (07:31→20:06)
--- NOTE | 2021-10-19 09:20 | Surgery Progress Note ---
Date of Service October 19, 2021 Assessment & Plan (1) Large mass of breast: Plan: She seems to be doing better overall and has no signs of florid sepsis The Aquacel Ag seems to be helping with the drainage and odor Still no plans for surgery at this time If she did need surgery she would likely need a tumor debridement and would have a resulting wound as the masses encompassing her entire left breast Would have wound care nurses see her and set her up for dressings as an outpatient The goal would be palliative to control odor and drainage from the mass itself Will follow Admission and Anticipated Discharge Date Admission Date: October 17, 2021 Subjective Patient seen and examined. Afebrile. Pain is tolerable. She states there is l ess odor. Review of Systems Constitutional: no fever and no chills Physical Exam Constitutional: WD/WN, vitals as above Chest (Breasts): Additional Comments: Left fungating breast mass with minimal purulence and bleeding, no surrounding skin erythema Results & Data ([facility]) Vital Signs (Past 12 Hours) Vital Signs Temp Pulse Pulse Resp BP Pulse Ox O2 Del Method 10/19/21 07:58 36.9 C 98 H 16 109/71 100 Room Air 10/19/21 06:57 90 10/19/21 03:35 36.8 C 97 H 18 103/68 99 Room Air 10/19/21 03:00 10/18/21 22:58 37.1 C 106 H 20 112/74 98 Room Air O2 Del Method 10/19/21 07:58 10/19/21 06:57 10/19/21 03:35 10/19/21 03:00 Room Air 10/18/21 22:58 PG Care Time/CCT Total # of Minutes Spent Total Time Spent with Patient: Total time spent is greater than 50% in coordination of care (as documented) at patient's floor/unit and/or counseling patient: Coding Level of Care Code 38195 Subseq Hosp Care Lvl 1 Diagnoses Large mass of breast N63.0
[2021-10-19 10:11] LABS: Ferritin 330.3 ng/ml (8-388)
[2021-10-19] MEDS: CEFEPIME 2,000 MG in SYRINGE 0 ML IV SCH ×2 (13:34→21:31)
[2021-10-19] MEDS ORDERED: SODIUM CHLORIDE 0.9% 250 ML IV PRN (17:39)
--- NOTE | 2021-10-19 18:02 | Hospitalist Progress Note ---
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 status post craniotomy and radiation hx right breast cancer with lung mets status post surgery (2007), chemotherapy, tamoxifen Rx History of BRCA gene mutation -- Remains afebrile wound culture: Pseudomonas, sensitivities pending blood cultures: negative -- Gen Surg: no surgery -- continue Meropenem + Doxy day 3 pain mends- Oxy PRN, Tylenol scheduled -- Wound care consulted-awaiting recommendations Sinus tachycardia Possibly secondary to acute on chronic anemia Stat CBC, PRP 1 unit packed RBCs on hold, transfuse if hemoglobin less than 8 Repeat CBC in the morning Iron level 16, will give iron infusion after packed RBC transfusion seizure disorder, stable on Keppra anxiety/mood disorder, stable off maintenance medications past tobacco abuse DVT prophylaxis. SCDs Re: Bleeding breast mass Full code Disposition wound cultures pending anticipate d/c home when medically stable Admission and Anticipated Discharge Date Admission Date: October 17, 2021 Subjective Follow-up for left breast mass, infected wound, etc. Seen with ASHLY Belcher at the bedside total encounter States she feels fine overall today No fevers or chills Pain over the left breast mass well controlled No shortness of breath, palpitations, dizziness, lightheadedness, chest pain No other symptoms Noted to be sinus tachycardic heart rate 120s on telemetry no other symptoms Review of Systems Review of Systems: all noted and negative except for above Physical Exam Physical Exam: General- oriented x 3, not in distress, speaks in sentences with no effort or accessory muscle use Eyes- anicteric Neck- no JVD Lungs- clear breath sounds bilaterally, no rales/wheezes Heart-tachycardic, regular rhythm; no murmurs Left breast-minimal erythema, edema surrounding the left breast mass, minimal oozing of blood noted Abdomen- normal bowel sounds, nondistended, soft, nontender Extremities- no pretibial edema, no calf tenderness Neuro- alert, oriented x 3; no gross focal neurologic deficits Skin- warm & dry Results & Data Results & Data ([facility]) Vital Signs (Past 12 Hours) Vital Signs Temp Pulse Pulse Resp BP Pulse Ox O2 Del Method 10/19/21 16:08 36.9 C 103 H 18 102/69 99 Room Air 10/19/21 15:32 95 H 10/19/21 11:43 37.0 C 104 H 16 115/80 99 Room Air 10/19/21 07:58 36.9 C 98 H 16 109/71 100 Room Air 10/19/21 06:57 90 all noted and reviewed including below
[2021-10-19 18:10] LABS: Hematocrit (blood only) 25.9 % (34.1-44.9); Hemoglobin 8.4 g/dl (12.0-16.0); Mean Corpuscular Hemoglobin 32.6 pg (25.0-34.0); Mean Corpuscular Hgb Conc 32.4 g/dL (32.0-36.0); Mean Corpuscular Volume 100.4 fL (80.0-100.0); Mean Platelet Volume 8.9 fL (9.4-12.3); Platelet Count 210 K/uL (130-400); RDW Coefficient of Variation 15.6 % (11.5-14.5); RDW Standard Deviation 56.9 fL (36.4-46.3); Red Blood Count 2.58 M/uL (3.93-5.22)
[2021-10-19] MEDS ORDERED: SODIUM CHLORIDE 0.9% 1000ML 500 ML IV ONE (18:22)
[2021-10-19 18:49] LABS: Basophils # (auto) 0.03 K/uL (0-0.2); Basophils % (auto) 0.1 %; Eosinophils # (auto) 0.13 K/uL (0-0.50); Eosinophils % (auto) 0.5 %; Immature Granulocytes # (auto) 0.19 K/uL (0.00-0.02); Immature Granulocytes % (auto) 0.8 %; Lymphocytes # (auto) 0.76 K/uL (1.2-3.4); Lymphocytes % (auto) 3.1 %; Monocytes # (auto) 0.91 K/uL (0.24-0.82); Monocytes % (auto) 3.7 %; Neutrophils # (auto) 22.38 K/uL (1.4-6.5); Neutrophils % (auto) 91.8 %
[2021-10-19 18:56] LABS: BUN Creatinine Ratio 25.8 (10-20); Calcium 8.5 mg/dl (8.5-10.1); Creatinine Clr Calc Pharmacy 54.5 ml/min; Est GFR (African American) 55.2 ml/min; Est GFR (Non-African American) 47.6 ml/min; Potassium 4.2 mmol/L (3.5-5.1)
[2021-10-19] MEDS: SODIUM CHLORIDE 0.9% 1000ML 1,000 ML IV SCH (20:00)
[2021-10-19] MEDS: LIDOCAINE 5% 1 PATCH TD SCH (20:12)
[2021-10-20] MEDS: KETOROLAC TROMETHAMINE 15 MG/ML VIAL IV PRN (02:55)
[2021-10-20] MEDS: ACETAMINOPHEN 500 MG TAB PO SCH ×2 (03:23→14:22)
[2021-10-20] MEDS: SODIUM CHLORIDE 0.9% 1000ML 1,000 ML IV SCH (04:01)
[2021-10-20] MEDS: CEFEPIME 2,000 MG in SYRINGE 0 ML IV SCH ×2 (06:34→14:23)
[2021-10-20 06:35] LABS: Basophils # (auto) 0.02 K/uL (0-0.2); Basophils % (auto) 0.1 %; Eosinophils # (auto) 0.15 K/uL (0-0.50); Eosinophils % (auto) 0.8 %; Hematocrit (blood only) 23.5 % (34.1-44.9); Hemoglobin 7.5 g/dl (12.0-16.0); Immature Granulocytes # (auto) 0.16 K/uL (0.00-0.02); Immature Granulocytes % (auto) 0.9 %; Lymphocytes # (auto) 0.73 K/uL (1.2-3.4); Lymphocytes % (auto) 3.9 %; Mean Corpuscular Hemoglobin 32.1 pg (25.0-34.0); Mean Corpuscular Hgb Conc 31.9 g/dL (32.0-36.0); Mean Corpuscular Volume 100.4 fL (80.0-100.0); Mean Platelet Volume 8.6 fL (9.4-12.3); Monocytes # (auto) 0.82 K/uL (0.24-0.82); Monocytes % (auto) 4.4 %; Neutrophils % (auto) 89.9 %; Platelet Count 204 K/uL (130-400); RDW Coefficient of Variation 15.5 % (11.5-14.5); RDW Standard Deviation 56.6 fL (36.4-46.3); Red Blood Count 2.34 M/uL (3.93-5.22); White Blood Count 18.58 K/ul (4.8-10.8)
[2021-10-20] MEDS: LIDOCAINE 5% 1 PATCH TD SCH (06:35)
[2021-10-20 07:06] LABS: BUN Creatinine Ratio 37.5 (10-20); Calcium 8.1 mg/dl (8.5-10.1); Creatinine Clr Calc Pharmacy 74.9 ml/min; Est GFR (African American) 81.1 ml/min; Est GFR (Non-African American) 69.9 ml/min; Potassium 4.3 mmol/L (3.5-5.1)
[2021-10-20 07:39] LABS: Tear Drop Cells 1+
[2021-10-20] MEDS ORDERED: SODIUM CHLORIDE 0.9% 250 ML IV PRN (07:42)
[2021-10-20] MEDS: oxyCODONE HCL IR 5 MG TAB (IMMEDIATE RELEASE) PO PRN (07:55)
[2021-10-20] MEDS: levETIRAcetam 500 MG TAB PO SCH (07:55)
[2021-10-20] MEDS: FERROUS SULFATE 325 MG TAB PO SCH ×2 (08:55→16:38)
--- NOTE | 2021-10-20 09:13 | Surgery Progress Note ---
Date of Service October 20, 2021 Assessment & Plan (1) Large mass of breast: Plan: Her leukocytosis is improved Hemoglobin is 7 5 this morning and she is set to get 1 unit PRBCs No plans for surgery as she is chronically anemic and just recently had intracranial surgery 2 weeks ago Would continue the Aquacel Ag dressings changing once a day to help with drainage and odor Continue her antibiotics, can switch to p.o. upon discharge I would have her follow-up in the wound clinic so that she will have help with her dressing changes once she is home Surgery will sign off at this time, please call with any questions or concerns Admission and Anticipated Discharge Date Admission Date: October 17, 2021 Subjective Patient seen and examined. No acute events overnight. Afebrile. Review of Systems Constitutional: no fever and no chills Physical Exam Constitutional: WD/WN, vitals as above Chest (Breasts): Additional Comments: Left breast with fungating mass, slight oozing, decreased purulence Results & Data ([facility]) Vital Signs (Past 12 Hours) Vital Signs Temp Pulse Pulse Resp BP Pulse Ox O2 Del Method 10/20/21 07:18 36.9 C 92 H 20 106/70 99 Room Air 10/19/21 22:20 97 H 10/20/21 03:00 10/20/21 03:35 36.9 C 103 H 20 104/71 99 Room Air 10/19/21 22:57 36.9 C 104 H 20 92/61 L 99 Room Air O2 Del Method 10/20/21 07:18 10/19/21 22:20 10/20/21 03:00 Room Air 10/20/21 03:35 10/19/21 22:57 PG Care Time/CCT Total # of Minutes Spent Total Time Spent with Patient: Total time spent is greater than 50% in coordination of care (as documented) at patient's floor/unit and/or counseling patient: Coding Level of Care Code 29499 Subseq Hosp Care Lvl 1 Diagnoses Large mass of breast N63.0
[2021-10-20] MEDS ORDERED: DOXYCYCLINE HYCLATE 100 MG CAP PO SCH (10:00)
[2021-10-20 13:02] LABS: Hematocrit (blood only) 27.2 % (34.1-44.9); Hemoglobin 8.5 g/dl (12.0-16.0)
--- NOTE | 2021-10-20 14:23 | Hospitalist Progress Note ---
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 status post craniotomy and radiation hx right breast cancer with lung mets status post surgery (2007), chemotherapy, tamoxifen Rx History of BRCA gene mutation -- Remains afebrile wound culture: Pseudomonas, sensitive to Cipro and Levaquib blood cultures: negative -- Gen Surg: no surgery -- given Meropenem + Doxy x 4 days -- borders of the left breast mass with resolving erythema, edema minimal oozing of blood with dressing changes Gen Surg recommending daily dressing with Aquacel, ff up with [facility] wound care upon discharge pain mends- Oxy PRN, Tylenol scheduled given -- Wound care consulted-awaiting recommendations Sinus tachycardia Possibly secondary to acute on chronic anemia Hg 7.4 given 1 unit pRBC Hg improved to 8.5 Iron level 16 Venofer 1 dose given continue Ferrous sulfate at home seizure disorder, stable on Keppra anxiety/mood disorder, stable off maintenance medications past tobacco abuse DVT prophylaxis. SCDs Re: Bleeding breast mass Full code Disposition d/c home ff up with PCP in 1 week ff up with Oncologist as scheduled Admission and Anticipated Discharge Date Admission Date: October 17, 2021 Subjective ff up for left breast mass infection, etc. Seen resting in bed, sitting up, sleeping but easily awakened States she feels better overall Left breast mass pain well controlled with oxycodone Denies fevers or chills, nausea vomiting, chest pain, shortness of breath States she is ready for discharge today as well no other symptoms Review of Systems Review of Systems: all noted and negative except for above Physical Exam Physical Exam: General- oriented x 3, not in distress, speaks in sentences with no effort or accessory muscle use Eyes- anicteric Neck- no JVD Lungs- clear BS bilaterally, no rales/wheezes Heart- normal rate, regular rhythm; no murmurs Abdomen- normal bowel sounds, nondistended, soft, nontender Extremities- no pretibial edema, no calf tenderness Neuro- alert, oriented x 3; no gross focal neurologic deficits Skin- warm & dry Results & Data Results & Data ([facility]) Vital Signs (Past 12 Hours) Vital Signs Temp Pulse Pulse Resp BP BP Pulse Ox 10/20/21 12:17 37.1 C 108 H 16 113/74 98 10/20/21 10:57 96 H 10/20/21 10:45 36.9 C 101 H 18 102/68 98 10/20/21 11:15 37.0 C 100 H 18 117/69 100 10/20/21 10:15 36.9 C 107 H 18 109/72 99 10/20/21 09:45 37.1 C 104 H 18 103/67 98 10/20/21 09:30 37.1 C 88 18 102/69 98 10/20/21 09:11 37.0 C 73 18 118/77 10/20/21 07:18 36.9 C 92 H 20 106/70 99 10/20/21 03:00 10/20/21 03:35 36.9 C 103 H 20 104/71 99 O2 Del Method O2 Del Method 10/20/21 12:17 10/20/21 10:57 10/20/21 10:45 10/20/21 11:15 10/20/21 10:15 10/20/21 09:45 10/20/21 09:30 10/20/21 09:11 10/20/21 07:18 Room Air 10/20/21 03:00 Room Air 10/20/21 03:35 Room Air all noted and reviewed including below
--- NOTE | 2021-10-20 14:36 | Discharge Summary ---
Date of Service October 20, 2021 Admission HPI Per Admitting Provider History obtained from patient and records. Medical history significant for recurrent left breast cancer status post chemotherapy with brain mets status post craniotomy and radiation, history right breast cancer with lung mets status post surgery (2007), chemotherapy, tamoxifen Rx, History of BRCA gene mutation, seizure disorder on Keppra, chronic anemia (baseline hemoglobin of 8), anxiety/mood disorder, past tobacco abuse. Patient was residing in [place] last year when she was found to have left breast cancer status post chemotherapy/immunotherapy under the care of [facility] specialist. Patient moved back to [place] 3 months ago to be with her family. 2 months ago patient noted a blister on her left breast which later developed into a fungating left breast mass wound with purulent drainage. Patient brought by daughter to [facility] 6 weeks ago. Wound CS grew Bacteroides and Finegoldia. Bactrim and Keflex prescribed by provider which improved infection as per patient. She was waiting for [facility] records to be sent to her local family doctor/oncologist. Two weeks ago patient noted to be confused at home by family. EMS called to patient's home. Seizures noted at patient's home. Patient intubated upon arrival at [facility] for airway protection/respiratory failure. CT head showed left parieto-occipital hypodensity representing vasogenic edema, possible brain metastasis. Patient transferred to [facility] for neurosurgical services. Subsequently admitted from October [address] chest, abdomen, and pelvis showed 1. 10 cm heterogenous mass in the left breast concerning for malignancy with lymph node metastasis to the left axilla and right hilum. 2. Diffuse lung nodules and multiple hypodense lesions throughout the liver concerning for additional sites of metastasis. 3. Small bilateral pleural effusions, anasarca, and free fluid in the abdomen and pelvis. Brain MRI showed Solitary intracranial metastases within the left parietal lobe with correspo nding increased relative cerebral blood volume and surrounding edema. Patient underwent stereotactic radiation surgery followed by craniectomy with mass resection. Postop brain MRI showed acute postsurgical changes status post resection of previously seen left parietal intraparenchymal mass. No evidence of residual tumor within the surgical resection cavity. Left breast mass pathology showed high-grade poorly differentiated adenocarcinoma. Patient discharged on Decadron taper and Keppra Rx. Outpatient follow-up with local oncologist scheduled for next week. Patient noted increase in foul-smelling drainage from left breast mass the last few days. No fever, no chills, no chest pain, no SOB. Last night, patient noted uncontrolled bleeding from left breast mass. No recollection of trauma. EMS called to patient's home. Patient noted to be tachycardic. Patient brought to the ER for evaluation. Tranexamic acid administered at the ER. Medical History as above Surgical History : Right mastectomy, breast reconstruction, ESWL, section, vascular device placement, appendectomy, cholecystectomy, craniotomy with supratentorial brain tumor removal Family History : Heart disease, breast cancer Personal/Social history : Past tobacco abuse, occasional EtOH intake, prior employment at a [employer] Admission Exam Per Admitting Provider GENERAL: Comfortable, pleasant, looks older than stated age, no respiratory distress SKIN: Pallor, warm HEENT: Bespectacled, pale palpebral conjunctivae, no ptosis, dry buccal mucosa NECK : Supple, no tenderness CHEST : CTA, fungating left breast mass with foul-smelling drainage, no chest wall tenderness HEART : RRR, no obvious murmurs ABDOMEN: Some distention, nontender EXTREMITIES : No LE swelling/tenderness, no other conspicuous deformities noted NEUROLOGIC : Coherent, no facial asymmetry, no other gross focality Discharge Data Allergies Allergy/AdvReac Type Severity Reaction Status Date / Time Penicillins Allergy Mild RASH TO Verified 10/17/21 01:[address] CORREA Consultations 10/17/21 03:09 Consult General Surgery Routine Hospital Course (1) Sepsis: Secondary to infected left breast mass Immunocompromised patient Recent Decadron Rx for vasogenic edema hx recurrent left breast cancer w/ lung mets and brain mets status post craniotomy and radiation hx right breast cancer with lung mets status post surgery (2007), chemotherapy, tamoxifen Rx History of BRCA gene mutation -- Remains afebrile wound culture: Pseudomonas, sensitive to Cipro and Levaquib blood cultures: negative -- Gen Surg: no surgery -- given Meropenem + Doxy x 4 days -- borders of the left breast mass with resolving erythema, edema minimal oozing of blood with dressing changes Gen Surg recommending daily dressing with Aquacel, ff up with [facility] wound care upon discharge pain mends- Oxy PRN, Tylenol scheduled given -- Wound care consulted-awaiting recommendations Sinus tachycardia Possibly secondary to acute on chronic anemia Hg 7.4 given 1 unit pRBC Hg improved to 8.5 Iron level 16 Venofer 1 dose given continue Ferrous sulfate at home seizure disorder, stable on Keppra anxiety/mood disorder, stable off maintenance medications past tobacco abuse DVT prophylaxis. SCDs Re: Bleeding breast mass Full code Disposition d/c home ff up with PCP in 1 week ff up with Oncologist as scheduled Discharge Plan Discharge Items Patient Disposition: Home - Home Health Services Reason For Visit: SEPSIS Discharge Diagnosis: LEFT BREAST MASS INFECTION Activity: Resume your previous activity Activity Comment: INCREASE GRADUALLY TOLERATED Driving/Machine Use: NO DRIVING UNTIL RE-EVALUATED AND ALLOWED BY PRIMARY CARE PHYSICIAN Non-emergency contact: Primary Care Provider Call non-emergency contact if: you have any medication questions, your symptoms worsen, your pain is not controlled, your pain is worsening, your pain is unusual for you, your pain is concerning for you and you have a fever Follow-up/Referrals: Glen Oconnor MD [Primary Care Provider] - (Date & Time 10/22/2021 11:20 AM Provider Glen Oconnor MD Department Family Medicine [facility] ) Diet: Regular Addtl Attending Provider Instructions: PLEASE REFER TO YOUR NEW MEDICATION LIST AND FOLLOW INSTRUCTIONS CAREFULLY. DAILY WOUND DRESSING CHANGES, WITH AQUACEL. YOUR NEW MEDICATIONS INCLUDE: CIPROFLOXACIN- antibiotic for breast mass infection FERROUS SULFATE- for iron deficiency anemia OXYCODONE- as needed for pain TAKE A PROBIOTIC DAILY FOR AT LEAST 1 MONTH. DRINK PLENTY OF WATER- 8 GLASSES /DAY. TAKE A LAXATIVE WHILE TAKING OXYCODONE. PLEASE CALL YOUR PRIMARY CARE PHYSICIAN OR RETURN TO THE ER IF WITH WORSENING OF SYMPTOMS, INCLUDING INCREASING PAIN/REDNESS/SWELLING/DISCHARGE/BLEEDING OVER THE LEFT BREAST MASS AREA, FEVER/CHILLS, WEAKNESS, DIARRHEA, NAUSEA/VOMITING, CONSTIPATION. FOLLOW UP WITH PRIMARY CARE PHYSICIAN OUTLINED ABOVE. FOLLOW UP WITH [facility] IN 1 WEEK. Pending Studies at Discharge: Yes Studies:: REPEAT BLOODWORK - COMPLETE BLOOD COUNT- ON FF UP WITH PRIMARY CARE PHYSICIAN Stand-Alone Forms: My [facility], Smoking Cessation Medications and DC Order Prescriptions: New ferrous sulfate 325 mg (65 mg iron) Tablet,Delayed Release (Dr/Ec) 325 mg PO BIDM 30 Days Qty: 60 1RF oxycodone 5 mg Tablet 5 mg PO Q6H PRN (Reason: SEVERE PAIN) Qty: 14 0RF ciprofloxacin HCl [Cipro] 500 mg tablet 500 mg PO BID Qty: 20 0RF Continued famotidine 20 mg tablet 20 mg PO BID PRN (Reason: Acid Reflux) levetiracetam 1,000 mg tablet 1,000 mg PO BID acetaminophen [Tylenol Extra Strength] 500 mg Tablet 1,000 mg PO Q6H PRN (Reason: Pain) Qty: 20 0RF Rx Instructions: DO NOT USE MORE THAN 3,000MG PER DAY Discharge Orders: Discharge Order (Routine); Ordered 10/20/21 Ordered By: Eddie Hutchins Admission Data Admit Date/Time: 10/17/21 02:01 Attending Provider: Eddie Hutchins Admit Provider: Avni Carrero Primary Care Provider: Glen Oconnor Other Providers: Nicholas Ascencio ; Caleb Powers ; Fred Martinez ; Ra Castillo Jr ; Kushal Pacheco ; Temo Munoz ; Meeta Baires ; Jimmy Garcia ; Jeff Marie
[2021-10-20] MEDS ORDERED: IRON SUCROSE 150 MG in SODIUM CHLORIDE 0.9% 250 ML IV ONE (14:45)
[2021-10-20] MEDS: LORazepam 0.5 MG TAB PO PRN (15:00)
== END 2021-10-20 18:58 | disposition home health service (06) | DRG 598 ==
LOC: ED 22:47 → EDINP 10-17 02:01 → 2S 10-17 05:55 → 2N 10-17 20:16